=== PATIENT | male | born 1980 | race Caucasian/White ===

== ENCOUNTER 2016-08-13 02:16 | Emergency (ER) | payer SELFPAY ==
[~2016-08-13] VITALS: Ht 175.3 cm; Wt 129.3 kg
[2016-08-13 02:30] VITALS: BP 129/97
== END 2016-08-13 04:54 | disposition home or self-care (01) ==
LOC: ER 02:16
DX: K04.7 Periapical abscess without sinus (principal); J45.909 Unspecified asthma, uncomplicated; Z88.6 Allergy status to analgesic agent

== ENCOUNTER 2017-02-23 13:18 | Emergency (ER) | payer MEDICAID, OTHER | END 2017-02-23 14:34 | disposition left against medical advice (07) | LOC: ER 13:24 | DX: J11.1 Influenza due to unidentified influenza virus with other respiratory manifestations (principal); Z53.21 Procedure and treatment not carried out due to patient leaving prior to being seen by health care provider ==

== ENCOUNTER 2017-03-28 11:06 | Emergency (ER) | payer MEDICAID ==
[~2017-03-28] VITALS: Ht 175.3 cm; Wt 140.6 kg
[2017-03-28 15:33] VITALS: BP 158/90
== END 2017-03-28 15:38 | disposition home or self-care (01) ==
LOC: ER 11:06
DX: J40 Bronchitis, not specified as acute or chronic (principal); J02.9 Acute pharyngitis, unspecified; J11.1 Influenza due to unidentified influenza virus with other respiratory manifestations
CPT/HCPCS: 71046